=== PATIENT | male | born 1985 | race Caucasian/White ===

== ENCOUNTER 2022-03-25 17:04 | Emergency (ER) | payer OTHER | END 2022-03-25 19:22 | disposition home or self-care (01) | LOC: FER 17:04 | DX: S01.81XA Laceration without foreign body of other part of head, initial encounter (principal); Z23 Encounter for immunization; V86.99XA Unspecified occupant of other special all-terrain or other off-road motor vehicle injured in nontraffic accident, initial encounter | CPT/HCPCS: 70450; 72125; 90471; 90715 ==